=== PATIENT | male | born 1960 | race Caucasian/White ===

== ENCOUNTER → 2017-01-26 | Day surgery (SDC) | payer OTHER ==
[~2017-01-26] MED LIST: ASPIRIN81 M2 PO; AUGMENTIN PO; INVOKAMET 50-11 EACH PO; NORVASC10 MG PO; ROSUVASTATIN CA40 MG; TRULICITY0.75 MG/0.; ZESTRIL2.5 MG PO; [UNRECOGNIZED DRUG - OTHER]
--- NOTE | ~2017-01-26 | OR ---
Unit #: [id number] #: [id number] Patient: PETER HUGGINS [id number] [address] [place], [place] [address] [id number] MR#: [id number] NAME: PETER HUGGINS ROOM: Date of Procedure: 01/26/2017 Admission Date: 01/26/2017 Surgeon: Ky Quiroga Jr., M.D. : 1960 Attending Physician: Ky Quiroga Jr., M.D. Primary Care Physician: Kenzie Matute A.P.R.N. OPERATIVE REPORT INDICATION FOR PROCEDURE The patient is a 56-year-old white male, who presents complaining of some progressive constipation. He has had no previous colonoscopy and desires a screening colonoscopy for workup of this constipation as well as to rule out any occult pathology. The patient understands the procedure including the risk and consents. He understands there may be a chance of perforation or bleeding. He has had his prep at home. PREOPERATIVE DIAGNOSIS Desired screening colonoscopy with progressive constipation. POSTOPERATIVE DIAGNOSIS Normal colonoscopy to the terminal ileum. ANESTHESIA MAC anesthesia PROCEDURE PERFORMED Flexible colonoscopy to the distal ileum. DESCRIPTION OF PROCEDURE The patient was positioned in Parsons position with left side down. After being given MAC anesthesia, digital rectal examination was performed, which revealed no palpable mass or tenderness. No blood or stool in the rectal ampulla. Prostate was normal by palpation. The Olympus colonoscope was advanced through the anal canal up the rectum and retroflexed down to the area of the anorectal region. There was no evidence of any fissures. No significant internal hemorrhoids. The scope was then straightened and advanced up in the rectosigmoid, in the sigmoid and descending colon areas, around the splenic flexure and the transverse colon, around hepatic flexure and ascending colon, down in the area of the cecum. The light from the tip of the scope could be seen transilluminating through the right lower quadrant abdominal wall area. The scope was advanced up the distal ileum approximately 10 to 15 inches. There was no evidence of any inflammatory bowel disease or enteritis. The scope was slowly removed. There were no tumors, polyps, cancer, or AVMs. No evidence of any colitis, diverticulosis, or diverticulitis. The caliber of the colon appeared normal throughout. The scope was removed. The patient tolerated the procedure well and discharged in satisfactory condition. Unit #: [id number] #: [id number] Patient: PETER HUGGINS Dictated by... Ky Quiroga Jr., MLarisa RODRIGUEZ/todd TD: 01/31/2017 10:55 JOB #: [id number] OPERATIVE REPORT Page 1 of 1 X Ky Quiroga MD X PROCEDURE OPERATIVE NOTE
== END | disposition home or self-care (01) ==
LOC: COPS 10:47
PROVIDERS: Surgery
PROC: 0DJD8ZZ Inspection of Lower Intestinal Tract, Via Natural or Artificial Opening Endoscopic (ICD-10-PCS; principal; 2017-01-26 13:30)
DX: K59.00 Constipation, unspecified (principal); E11.9 Type 2 diabetes mellitus without complications; Z79.84 Long term (current) use of oral hypoglycemic drugs; I10 Essential (primary) hypertension; E66.01 Morbid (severe) obesity due to excess calories; Z68.33 Body mass index [BMI] 33.0-33.9, adult; Z79.899 Other long term (current) drug therapy; N52.9 Male erectile dysfunction, unspecified; M25.511 Pain in right shoulder; Z79.82 Long term (current) use of aspirin; Z98.890 Other specified postprocedural states; Z88.1 Allergy status to other antibiotic agents; Z86.73 Personal history of transient ischemic attack (TIA), and cerebral infarction without residual deficits; Z87.39 Personal history of other diseases of the musculoskeletal system and connective tissue; Z80.0 Family history of malignant neoplasm of digestive organs; Z81.1 Family history of alcohol abuse and dependence; Z83.2 Family history of diseases of the blood and blood-forming organs and certain disorders involving the immune mechanism; Z82.5 Family history of asthma and other chronic lower respiratory diseases; Z81.8 Family history of other mental and behavioral disorders; Z80.3 Family history of malignant neoplasm of breast
CPT/HCPCS: 82947